=== PATIENT | male | born 1945 | race Caucasian/White ===

== ENCOUNTER 2023-06-28 11:19 | Day surgery (SDC) | payer OTHER ==
[~2023-06-28] VITALS: Ht 170.2 cm; Wt 96.2 kg
[2023-06-28 11:42] VITALS: BP 128/52; PULSE 62; RESP 16; TEMP 98.2; O2SAT 95
[2023-06-28] MEDS ORDERED: normal saline 1000ml 1,000 ML IV PRN (11:45)
[2023-06-28 12:15] VITALS: RESP 16; O2SAT 95
[2023-06-28 12:21] LABS: PROTHROMBIN TIME 10.5 SECONDS (9.0-12.0)
[2023-06-28] MEDS ORDERED: fentaNYL/PF 50MCG/1 ML 2ML syringe ONE (12:26)
[2023-06-28] MEDS ORDERED: midazolam 1 mg/ML 2ml injection ONE (12:26)
[2023-06-28] MEDS ORDERED: LIDOcaine 1% 30ml preserv. free vial ONE (12:27)
[2023-06-28] MEDS ORDERED: heparin 1,000unit/ml 10ml vial 10 ML ONE (12:27)
[2023-06-28] MEDS ORDERED: METO-384 PO (12:28)
[2023-06-28] MEDS ORDERED: FLO0.4C PO (12:28)
[2023-06-28] MEDS ORDERED: HYDR-4294 PO (12:28)
[2023-06-28] MEDS ORDERED: AMLO10TA PO (12:28)
[2023-06-28] MEDS ORDERED: SIMV-42 PO (12:28)
[2023-06-28] MEDS ORDERED: FURO-149 PO (12:28)
[2023-06-28] MEDS ORDERED: PIOG15TA8 PO (12:28)
[2023-06-28] MEDS ORDERED: CALC0.2536 PO (12:28)
[2023-06-28] MEDS ORDERED: ASPI-611 PO (12:28)
[2023-06-28] MEDS ORDERED: APIX5TAB3 PO (12:28)
[2023-06-28 13:47] VITALS: BP 119/44; PULSE 52; RESP 16; O2SAT 95
[2023-06-28 14:02] VITALS: BP 131/48; PULSE 54; RESP 16; O2SAT 95
[2023-06-28 14:16] VITALS: PULSE 51; RESP 16; O2SAT 93
[2023-06-28 14:32] VITALS: PULSE 57; RESP 16; O2SAT 92
== END 2023-06-28 15:00 | disposition home or self-care (01) ==
LOC: SSTAY O 11:19
PROVIDERS: ATTEND Radiology Vascular & Interventional Radiology
DX: E11.22 Type 2 diabetes mellitus with diabetic chronic kidney disease (principal); I12.0 Hypertensive chronic kidney disease with stage 5 chronic kidney disease or end stage renal disease; N18.6 End stage renal disease; D64.9 Anemia, unspecified; N40.0 Benign prostatic hyperplasia without lower urinary tract symptoms; Z88.5 Allergy status to narcotic agent; Z88.8 Allergy status to other drugs, medicaments and biological substances; Z79.82 Long term (current) use of aspirin; Z79.01 Long term (current) use of anticoagulants; Z79.899 Other long term (current) drug therapy; Z85.038 Personal history of other malignant neoplasm of large intestine; Z87.891 Personal history of nicotine dependence
CPT/HCPCS: 36415; 36558; 76937; 77001; 85610; 99152; 99153; C1750; C1769; J1644; J2250; J3010; J3490; J7030; 76942; A4620; C1894

== ENCOUNTER 2023-10-13 10:56 | Day surgery (SDC) | payer OTHER ==
[~2023-10-13] VITALS: Ht 170.2 cm; Wt 102.3 kg
[2023-10-13] VITALS (11 sets, daily range): BP systolic 117–157; BP diastolic 64–90; PULSE 62–70; RESP 14–16; TEMP 97.9; O2SAT 93–98
[~2023-10-13 10:56] MED LIST: AMLO10TA PO; ASPI-611 PO; CALC0.2536 PO; D3; DICL100G59 TOP; DIPH-522 PO; DOCUMENT DATE & TIME OF BETA-BLOCKER PO ONE; FLO0.4C PO; FLUO30CR3 TOP; FURO-149 PO; GABA600T13; INSU100C10 SQ; LANTUS SQ; METO-384 PO; OXYC-658 PO; PHO667C PO; PIOG15TA8 PO; SIMV-42 PO; cefazolin 2gm/D5W 100mL 100 ML IV ONE; famotidine 20mg tablet PO ONE; normal saline 1000ml 1,000 ML IV SCH
[2023-10-13 12:54] LABS: BASOPHILS # (AUTO) 0.1 X10'3 (0-0.2); BASOPHILS % (AUTO) 1.1 % (0-1); EOSINOPHILS # (AUTO) 0.5 X10'3 (0-0.9); EOSINOPHILS % (AUTO) 5.6 % (0-6); LYMPHOCYTES # (AUTO) 1.4 X10'3 (1.1-4.8); LYMPHOCYTES % (AUTO) 14.6 % (21-51); MEAN CORPUSCULAR HEMOGLOBIN 28.6 PG (27.0-31.0); MEAN CORPUSCULAR HGB CONC 32.4 g/dL (33.0-36.5); MEAN CORPUSCULAR VOLUME 88.4 FL (78-98); MEAN PLATELET VOLUME 8.7 FL (7.4-10.4); MONOCYTES # (AUTO) 0.6 X10'3 (0-0.9); MONOCYTES % (AUTO) 6.6 % (2-12); NEUTROPHILS # (AUTO) 6.7 X10'3 (1.8-7.7); NEUTROPHILS % (AUTO) 72.1 % (42-75); PRE OP HEMATOCRIT 40.8 % (42.0-52.0); PRE OP HEMOGLOBIN 13.2 g/dL (14.0-17.9); PRE OP PLATELET COUNT 170 X10'3 (140-440); PRE OP WHITE BLOOD COUNT 9.3 10'3 (4.8-10.8); RED BLOOD COUNT 4.62 X10'6 (4.70-6.10); RED CELL DISTRIBUTION WIDTH 16.3 % (11.5-14.5)
[2023-10-13 13:10] LABS: ALBUMIN 3.4 G/DL (3.4-5.0); ALBUMIN/GLOBULIN RATIO 0.8 (1.1-1.5); ALKALINE PHOSPHATASE 83 IU/L (46-116); BLOOD UREA NITROGEN 47 MG/DL (7-18); CALCIUM 8.8 MG/DL (8.5-10.1); CHLORIDE 95 MMOL/L (99-107); PRE OP ALT 19 U/L (30-65); PRE OP ANION GAP 10 (8-16); PRE OP AST 22 U/L (10-37); PRE OP BILIRUB, TOTAL 0.5 MG/DL (0.0-1.0); PRE OP GLUCOSE 87 MG/DL (70-104); PRE OP SODIUM 133 MMOL/L (135-145); TOTAL CARBON DIOXIDE 27.7 MMOL/L (24-32); TOTAL PROTEIN 7.6 G/DL (6.4-8.2); eCRCL 11 ML/MIN; eGFR 11 ML/MIN
[2023-10-13] MEDS ORDERED: dextrose 5%-water 1,000 ML IV SCH (15:35)
[2023-10-13] MEDS ORDERED: HYDROmorphone/PF 0.2 MG/ML SYRINGE IV PRN ×2 (15:40)
[2023-10-13] MEDS ORDERED: morphine 2 MG/ML inj. syringe IV PRN (15:40)
[2023-10-13] MEDS ORDERED: proCHLORperazine 10 MG/2 ml inj IV PRN (15:40)
[2023-10-13] MEDS ORDERED: morphine 4 MG/ML inj SYRINge IV PRN (15:40)
[2023-10-13] MEDS ORDERED: ondansetron/PF 4mg/2ml inj IV PRN (15:40)
[2023-10-13] MEDS ORDERED: hydrALAZINE 20mg/ml inj. IV PRN (15:40)
[2023-10-13] MEDS ORDERED: labetalol 20mg/4ml (5mg/ml) syringe IV PRN (15:40)
[2023-10-13] MEDS ORDERED: ringers solution, lacted 1,000 ML IV SCH (15:40)
[2023-10-13] MEDS ORDERED: heparin 10,000 units/1 ML INJ ONE (15:51)
[2023-10-13] MEDS ORDERED: BUPIVAcaine/PF 5 mg/ml 10ml ONE (15:52)
[2023-10-13] MEDS ORDERED: LIDOcaine 1% w/EPI 1:100,000 inj. MDV 50 ML VIAL ONE (15:52)
[2023-10-13] MEDS ORDERED: sevoflurane 250ml liquid IH ONE (16:08)
[2023-10-13] MEDS ORDERED: fentaNYL/PF 50MCG/1 ML 2ML syringe ONE (16:17)
[2023-10-13] MEDS ORDERED: dexamethasone sod phosphate 4mg/ml inj. ONE (16:31)
[2023-10-13] MEDS ORDERED: LIDOcaine 2% (20mg/ml) 5ml vial ONE (16:31)
[2023-10-13] MEDS ORDERED: midazolam 1 mg/ML 2ml injection ONE (16:31)
[2023-10-13] MEDS ORDERED: propofol inj 20 ML IV ONE (16:31)
[2023-10-13] MEDS ORDERED: ePHEDrine 50MG/ML INJ. ONE (16:32)
[2023-10-13] MEDS ORDERED: 0.9 % SODIUM CHLORIDE 10 ML VIAL ONE (16:32)
[2023-10-13] MEDS ORDERED: ondansetron/PF 4mg/2ml inj ONE (16:32)
[2023-10-13] MEDS ORDERED: heparin 10,000 units/1 ML INJ IR ONE (17:04)
== END 2023-10-13 18:45 | disposition home or self-care (01) ==
LOC: PAS 10:56
PROVIDERS: ATTEND Surgery
DX: E11.22 Type 2 diabetes mellitus with diabetic chronic kidney disease (principal); I12.0 Hypertensive chronic kidney disease with stage 5 chronic kidney disease or end stage renal disease; N18.6 End stage renal disease; G47.33 Obstructive sleep apnea (adult) (pediatric); E66.9 Obesity, unspecified; Z68.35 Body mass index [BMI] 35.0-35.9, adult; E78.5 Hyperlipidemia, unspecified; I48.91 Unspecified atrial fibrillation; E21.3 Hyperparathyroidism, unspecified; N40.0 Benign prostatic hyperplasia without lower urinary tract symptoms; J44.9 Chronic obstructive pulmonary disease, unspecified; D64.9 Anemia, unspecified; M19.90 Unspecified osteoarthritis, unspecified site; Z86.718 Personal history of other venous thrombosis and embolism; Z88.5 Allergy status to narcotic agent; Z79.01 Long term (current) use of anticoagulants; Z79.4 Long term (current) use of insulin; Z79.899 Other long term (current) drug therapy; Z90.49 Acquired absence of other specified parts of digestive tract; Z98.890 Other specified postprocedural states; Z87.891 Personal history of nicotine dependence; Z72.89 Other problems related to lifestyle; Z82.49 Family history of ischemic heart disease and other diseases of the circulatory system; Z85.038 Personal history of other malignant neoplasm of large intestine
CPT/HCPCS: 36415; 36821; 80053; 82948; 85025; 93005; J0690; J1100; J1644; J2250; J2405; J2704; J3010; J3490; J7030; J7040; J7070; J7120; Z7506; Z7508; Z7512; A4215; A4615; A4618; A6446; A7000